=== PATIENT | female | born 2000 | race Caucasian/White ===

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

== ENCOUNTER 2021-04-10 21:46 | Outpatient (CLI) | payer BC ==
--- NOTE | 2021-04-10 23:23 | Ultrasound Report ---
PROCEDURE: Abdomen Limited INDICATIONS: RIGHT UPPER QUAD PAIN TECHNIQUE: Real-time focused scanning was performed of the abdomen, with image documentation. COMPARISON: None FINDINGS: Unremarkable gallbladder. No stones. No pain on examination. No wall thickening. No fluid around the gallbladder. Unremarkable appearance of the liver. No dilated ducts. Common hepatic duct measures 2.1 mm. Common bile duct measures 3.3 mm. Visualized portions of the pancreas are unremarkable. Right kidney is normal in size measuring 11.8 cm. No right hydronephrosis. IMPRESSION: Unremarkable right upper quadrant ultrasound. No evidence of gallstone disease. Reviewed by: Etienne Balbuena MD on 04/10/2021 11:23 PM PST Approved by: Etienne Balbuena MD on 04/10/2021 11:23 PM PST Station ID: [id number]
== END 2021-04-10 21:47 | disposition home or self-care (01) ==
LOC: DI 21:46
PROVIDERS: ATTEND Nurse Practitioner Family
DX: R10.11 Right upper quadrant pain (principal)

== ENCOUNTER 2021-05-16 07:44 | Outpatient (CLI) | payer BC, MEDICAID ==
--- NOTE | 2021-05-16 11:41 | XRAY Report ---
PROCEDURE: Wrist 3 View RT INDICATIONS: WRIST CYST TECHNIQUE: 3 views of the wrist were acquired. COMPARISON: None FINDINGS: Bones: No fractures or dislocations. No suspicious bony lesions. Soft tissues: No suspicious soft tissue calcifications. Soft tissue prominence noted over the dorsum of the wrist deep to metallic localizer placed over the area of clinical interest. IMPRESSION: No fracture. No osseous lesion. If there are persistent symptoms or continued clinical concern for pa thology, then repeat plain film radiographs (7-10 days) or advanced imaging (CT, MR, bone scan) shoul d be considered for further evaluation. Reviewed by: Concepción Feldman MD, PhD on 05/16/2021 11:39 AM PDT Approved by: Concepción Feldman MD, PhD on 05/16/2021 11:39 AM PDT Station ID: [id number]
== END 2021-05-16 23:59 | disposition home or self-care (01) ==
LOC: DI.WOS 07:44
PROVIDERS: ATTEND Orthopaedic Surgery
DX: M67.431 Ganglion, right wrist (principal)